=== PATIENT | male | born 1980 | race Hispanic/Latino ===

== ENCOUNTER → 2020-12-09 | Outpatient (CLI) | payer SELFPAY ==
[2020-12-09 16:43] LABS: BASOPHIL % 0.6 % (0.0-0.2); EOSINOPHIL # 0.2 10^3/uL (0.0-0.2); EOSINOPHIL % 2.1 % (0.0-5.0); LYMPHOCYTES # 2.32 10^3/uL1 (1.0-4.8); LYMPHOCYTES % 32.7 % (24.0-44.0); MEAN CORP HGB 31.3 pg (26-34); MONOCYTES # 0.8 10^3/uL (0.3-0.8); MONOCYTES % 10.6 % (5.0-12.0); NEUTROPHIL # 3.8 10^3/uL (1.8-7.7); PLATELET COUNT 321 10^3/uL (150-400); RED CELL DISTRIBUTION WIDTH 12.3 % (11.5-14.5)
[2020-12-09 17:08] LABS: CALCIUM 9.3 mg/dL (8.4-10.5); CARBON DIOXIDE 27.5 mmol/L (20.0-32)
== END | disposition home or self-care (01) ==
LOC: LAB 16:28
PROVIDERS: ATTEND Nurse Practitioner Family
DX: F19.10 Other psychoactive substance abuse, uncomplicated (principal); B18.2 Chronic viral hepatitis C
CPT/HCPCS: 36415; 80053; 80061; 83036; 84439; 84443; 85025; 87902